=== PATIENT | female | born 2000 | race Caucasian/White ===

== ENCOUNTER 2022-09-03 08:19 | Inpatient (IN) ==
[2022-09-03] MEDS ORDERED: OXYTOCIN 30 UNITS/500 ML BAG IV PRN ×3 (08:20→19:37)
[2022-09-03] MEDS ORDERED: LIDOCAINE 1% LOCAL 20 ML VIAL INFIL PRN (08:20)
--- NOTE | 2022-09-03 08:56 | History & Physical Report ---
Date of Service September 03, 2022 Assessment & Plan (1) Elective induction of labor planned: Plan: 22 yo G1 at 39 2/7 wga presents for eIOL VSS Fetus cat 1 Labor - will start with pit GBS neg epidural prn Admission and Anticipated Discharge Date Admission Date: September 03, 2022 History of Present Illness Chief Complaint: IOL Primary Care Provider: Snow Hernandez MD, FACOG 22 yo G1 at 39 2/7 wga presents for eIOL. +FM; denies regular ctx, LOF, VB PNI: None Past [employer] hx: G1 regular cycles denies hx STIs 01/2022 neg cotest Allergies Allergy/AdvReac Type Severity Reaction Status Date / Time No Known Allergies Allergy Verified 09/02/22 16:12 Home Medications Medication Instructions Recorded Confirmed Type prenat.vits,melanie,[id number] 1 tab PO DAILY 01/21/22 09/02/22 History breast pump #1 ea 08/28/22 09/02/22 Rx ferrous sulfate 325 mg (65 mg 325 mg PO DAILY 09/03/22 09/03/22 History iron) tablet Patient History Medical History (Updated 09/03/22 @ 09:06 by Ladi Phipps MD) COVID UTI (urinary tract infection) Surgical History S/P tonsillectomy Family History (Updated 01/21/22 @ 13:22 by Brooke Kee) Father Heart disease Denies family history of Ovarian cancer Breast cancer Colorectal cancer Social History (Updated 01/21/22 @ 13:24 by Brooke Kee) Smoking Status: Never smoker Hx Alcohol Use: No Hx Substance Use: No Preferred Language: Faroese Communication Ability: Effective Counter Supervisor Required: No Beliefs That Will Affect Care: None marital status: marital status details: Jay Mauricio (34) [phone] Current Living Situation: Spouse Current Living Situation Comment: lives with spouse, no pets current occupational status: unemployed Other Information That Helps Us Care for You: No Feels Safe at Home: Yes Safety Concerns: Feels Safe At This Time Physical Exam Genitourinary: OB Exam Abdomen: + vertex and + estimated weight (7-8) Manual OB Exam: + cervical dilation (2-3), + cervical effacement 70% and + station -2 OB Exam Monitor Tracing: + external FHT monitor used, + external uterine monitor used (None) and + category I (140/mod/+accel/-decel) Results & Data ([facility]) Vital Signs (Past 12 Hours) Vital Signs Temp Pulse Resp BP 09/03/22 08:28 98.2 F 18 09/03/22 08:28 101 H 126/69 Laboratory Results OB Labs: Blood Type B Positive 01/28/22 Antibody Screen NEGATIVE 01/28/22 Hemoglobin 11.1 g/dl (12.0-16.0) L 06/11/22 Hematocrit 32.9 % (34.1-44.9) L 06/11/22 Mean Corpuscular Volume 85.5 fL (80-100) 01/28/22 Platelet Count 265 K/uL (130-400) 01/28/22 Rubella IgG Antibody Immune (Immune) 01/28/22 Rapid Plasma Reagin Nonreactive (Nonreactive) 01/28/22 Hepatitis B Surface Antigen. NON-REACTIVE (NON-REACTIVE) 01/28/22 Hepatitis C Antibody (EIA) NON-REACTIVE (NON-REACTIVE) 01/28/22 HIV (1&2) Ag and Ab Confirmation NON-REACTIVE (NON-REACTIVE) 01/28/22 Glucose 1 Hour 50 gm Load 72 mg/dl (70-130) 06/11/22 OB Optional Labs: Chlamydia trachomatis RNA NOT DETECTED (NOT DETECTED) 01/28/22 Neisseria gonorrhoeae RNA NOT DETECTED (NOT DETECTED) 01/28/22 Labs Reviewed: Declines cf/sma--mln Low risk cfdna GBS neg Diagnostic Findings ant plac Coding Level of Care Code None Diagnoses Elective induction of labor planned
[2022-09-03 08:57] LABS: Hematocrit (blood only) 33.9 % (34.1-44.9); Hemoglobin 11.8 g/dl (12.0-16.0); Mean Corpuscular Hemoglobin 30.4 pg (25.0-34.0); Mean Corpuscular Hgb Conc 34.8 g/dL (32.0-36.0); Mean Corpuscular Volume 87.4 fL (80.0-100.0); Mean Platelet Volume 12.3 fL (9.4-12.3); Platelet Count 151 K/uL (130-400); RDW Coefficient of Variation 13.4 % (11.5-14.5); RDW Standard Deviation 42.7 fL (36.4-46.3); Red Blood Count 3.88 M/uL (3.93-5.22); White Blood Count 10.02 K/ul (4.8-10.8)
[2022-09-03] MEDS ORDERED: FLUARIX QUADRIVALENT 0.5 ML SYR IM ONE (09:03)
[2022-09-03] MEDS: LACTATED RINGER'S 1,000 ML IV PRN ×3 (09:27→17:33)
--- NOTE | 2022-09-03 12:42 | Labor Progress Brief Note ---
Date of Service September 03, 2022 Subjective comfortable Assessment & Plan (1) Elective induction of labor planned: Plan: 22 yo G1 at 39 2/7 wga presents for eIOL VSS Fetus cat 1 Labor - pit at 10, now s/p arom GBS neg epidural prn Admission and Anticipated Discharge Date Admission Date: September 03, 2022 Physical Exam Genitourinary: Manual OB Exam: + cervical dilation 3 cm, + cervical effacement 70%, + station -2 and + amniotic fluid (arom clear) OB Exam Monitor Tracing: + external FHT monitor used, + external uterine monitor used (intermi q5 reg, other times irreg) and + category I (145/mod/+accel/-decel) Results & Data ([facility]) Vital Signs (Past 12 Hours) Vital Signs Temp Pulse Resp BP 09/03/22 12:00 101.5 F H 09/03/22 11:00 98.1 F 09/03/22 08:50 18 09/03/22 08:28 98.2 F 18 09/03/22 12:00 20 09/03/22 12:00 20 09/03/22 12:02 82 09/03/22 12:02 117/75 09/03/22 11:00 18 09/03/22 11:00 18 09/03/22 10:58 83 09/03/22 10:58 114/76 09/03/22 10:01 82 09/03/22 10:01 107/67 09/03/22 09:00 20 09/03/22 09:00 20 09/03/22 08:28 101 H 126/69 Coding Level of Care Code None Diagnoses Elective induction of labor planned
[2022-09-03] MEDS ORDERED: ePHEDrine sulfate 50 MG/ML AMP ONE (13:00)
[2022-09-03] MEDS ORDERED: BUPIVACAINE 0.25% 30 ML VIAL ONE (13:00)
[2022-09-03] MEDS ORDERED: SODIUM CHLORIDE 0.9% INJ 10 ML VIAL ONE (13:00)
[2022-09-03] MEDS ORDERED: LIDOCAINE 2%/EPINEPHRINE 1:200,000 20 ML SDV ONE (13:00)
[2022-09-03] MEDS ORDERED: fentaNYL citrate 100 MCG/2 ML VIAL ONE (13:00)
[2022-09-03] MEDS ORDERED: fentaNYL 2MCG/ML ROPIVACAINE 1.25MG/ML 100 ML BAG EPI ONE (13:01)
[2022-09-03] MEDS ORDERED: NALBUPHINE HCL INJ 10 MG/ML AMP IV PRN (13:42)
[2022-09-03] MEDS ORDERED: NALOXONE HCL 0.4 MG/1 ML VIAL/CARP IV PRN (13:42)
[2022-09-03] MEDS ORDERED: NALOXONE HCL 1 MG in SODIUM CHLORIDE 0.9% 1000ML 1,000 ML IV PRN (13:42)
[2022-09-03] MEDS ORDERED: ePHEDrine sulfate 50 MG/ML AMP IV PRN (13:42)
[2022-09-03] MEDS ORDERED: diphenhydrAMINE 50 MG/ML VIAL IV PRN (13:42)
[2022-09-03] MEDS ORDERED: fentaNYL 2MCG/ML ROPIVACAINE 1.25MG/ML 100 ML BAG EPI PRN (13:42)
--- NOTE | 2022-09-03 13:44 | Anesthesiology Consultation ---
Date of Service September 03, 2022 Assessment & Plan (1) Encounter for pre-operative examination: Chart Review Chart Review: Patient NOT seen in Pre Admission Testing and Acceptable Risk for Labor Epidural Consults Requested none History Height/Weight Height: 5 ft 4.96 in Weight: 78.471 kg Allergies Allergy/AdvReac Type Severity Reaction Status Date / Time No Known Allergies Allergy Verified 09/02/22 16:12 Medications Home Medications Medication Instructions Recorded Confirmed Last Taken prenat.vits,melanie,oyj-[id number]-[id number] 1 tab PO DAILY 01/21/22 09/03/22 09/03/22 breast pump #1 ea 08/28/22 09/02/22 Unknown ferrous sulfate 325 mg (65 mg 325 mg PO DAILY 09/03/22 09/03/22 09/03/22 iron) tablet Active Medications Generic Name Dose Route Start Last Admin Trade Name Freq PRN Reason Stop Dose Admin Lactated Ringer's 1,000 mls @ 125 mls/hr 09/03/22 08:20 09/03/22 13:24 Lr IV 09/05/22 08:19 999 mls/hr .Q8H PRN Administration L&D Protocol Protocol Oxytocin 30 units in 500 mls @ 8 mls/hr 09/03/22 08:20 09/03/22 11:00 Pitocin IV 09/05/22 08:19 0.48 units/hr .Q24H PRN 8 mls/hr Labor Induction/Augmentation Titration Protocol 0.48 UNITS/HR Past Medical History Medical History COVID UTI (urinary tract infection) Exercise / Class Metabolic Activity II 4-5 Yardwork/Stairs/Walk up hill Past Family History Family History Father Heart disease Denies family history of Ovarian cancer Breast cancer Colorectal cancer Past Surgical History Surgical History S/P tonsillectomy Past Anesthesia History No Hx of Anesthesia Complications and No Family Hx of Anesthesia Complications History of PONV No Hx of PONV and No Hx of Motion Sickness Social History Smoking Status: Never smoker Hx Alcohol Use: No Hx Substance Use: No substance use type: does not use Physical Exam Vital Signs Last Vital Signs Temp 36.8 C 09/03/22 12:40 Pulse 83 09/03/22 14:02 Resp 20 09/03/22 12:36 BP 122/81 09/03/22 14:02 Pulse Ox 100 09/03/22 14:00 Testing Laboratory Results 09/03/22 08:45
--- NOTE | 2022-09-03 16:45 | Labor Progress Brief Note ---
Date of Service September 03, 2022 Subjective comfortable Assessment & Plan (1) Elective induction of labor planned: Plan: 22 yo G1 at 39 2/7 wga presents for eIOL VSS Fetus cat 1 Labor - pit at 12, good progress. Will peanut ball and recheck GBS neg epidural in place Admission and Anticipated Discharge Date Admission Date: September 03, 2022 Physical Exam Genitourinary: Manual OB Exam: + cervical dilation (9.5), + cervical effacement 90% and + station 0 OB Exam Monitor Tracing: + external FHT monitor used, + external uterine monitor used (q3-4) and + category I (135/mod/+accel/-decel) Results & Data ([facility]) Vital Signs (Past 12 Hours) Vital Signs Temp Pulse Resp BP Pulse Ox 09/03/22 12:00 101.5 F H 09/03/22 11:00 98.1 F 09/03/22 08:50 18 09/03/22 08:28 98.2 F 18 09/03/22 16:42 91 H 09/03/22 16:42 110/63 09/03/22 16:40 100 09/03/22 16:40 96 H 09/03/22 16:35 99 09/03/22 16:35 96 H 09/03/22 16:30 99 09/03/22 16:30 77 09/03/22 16:25 98 09/03/22 16:25 102 H 09/03/22 16:20 98 09/03/22 16:20 81 09/03/22 16:15 97 09/03/22 16:15 78 09/03/22 16:10 97 09/03/22 16:10 78 09/03/22 16:08 78 09/03/22 16:08 100/62 09/03/22 16:05 96 09/03/22 16:05 80 09/03/22 16:00 97 09/03/22 16:00 77 09/03/22 15:55 98 09/03/22 15:55 80 09/03/22 15:54 80 09/03/22 15:54 104/66 09/03/22 15:50 98 09/03/22 15:50 81 09/03/22 15:45 98 09/03/22 15:45 77 09/03/22 15:40 97 09/03/22 15:40 88 09/03/22 15:38 88 09/03/22 15:38 107/64 09/03/22 15:35 97 09/03/22 15:35 77 09/03/22 15:30 99 09/03/22 15:30 79 09/03/22 15:25 99 09/03/22 15:25 86 09/03/22 15:24 80 09/03/22 15:24 111/81 09/03/22 15:20 99 09/03/22 15:20 83 09/03/22 15:15 99 09/03/22 15:15 95 H 09/03/22 15:10 99 09/03/22 15:10 85 09/03/22 15:08 96 H 09/03/22 15:08 103/56 L 09/03/22 15:05 100 09/03/22 15:05 92 H 09/03/22 15:00 100 09/03/22 15:00 92 H 09/03/22 14:55 100 09/03/22 14:55 98 H 09/03/22 14:50 99 09/03/22 14:50 79 09/03/22 14:47 81 09/03/22 14:47 111/67 09/03/22 14:45 100 09/03/22 14:45 90 09/03/22 14:40 98 09/03/22 14:40 82 09/03/22 14:41 94 H 09/03/22 14:41 105/65 09/03/22 14:36 82 09/03/22 14:36 101/65 09/03/22 14:35 97 09/03/22 14:35 82 09/03/22 14:31 82 09/03/22 14:31 105/63 09/03/22 14:30 98 09/03/22 14:30 83 09/03/22 14:28 83 09/03/22 14:28 113/69 09/03/22 14:25 99 09/03/22 14:25 87 09/03/22 14:21 86 09/03/22 14:21 117/75 09/03/22 14:20 99 09/03/22 14:20 84 09/03/22 14:15 98 09/03/22 14:15 84 09/03/22 14:14 88 09/03/22 14:14 115/75 09/03/22 14:12 97 H 09/03/22 14:12 108/73 09/03/22 14:10 98 09/03/22 14:10 82 09/03/22 14:10 84 09/03/22 14:10 118/74 09/03/22 14:08 78 09/03/22 14:08 117/74 09/03/22 14:06 91 H 09/03/22 14:06 119/75 09/03/22 14:05 99 09/03/22 14:05 80 09/03/22 14:05 83 09/03/22 14:05 122/76 09/03/22 14:02 83 09/03/22 14:02 122/81 09/03/22 14:00 100 09/03/22 14:00 91 H 09/03/22 14:00 81 09/03/22 14:00 125/86 09/03/22 13:58 94 H 09/03/22 13:58 121/87 09/03/22 13:57 85 09/03/22 13:57 122/85 09/03/22 13:55 99 09/03/22 13:55 87 09/03/22 13:52 100 H 09/03/22 13:52 130/87 09/03/22 13:50 100 09/03/22 13:50 96 H 09/03/22 13:45 100 09/03/22 13:45 93 H 09/03/22 13:40 99 09/03/22 13:40 92 H 09/03/22 13:35 100 09/03/22 13:35 89 09/03/22 13:30 100 09/03/22 13:30 100 H 09/03/22 13:25 99 09/03/22 13:25 89 09/03/22 13:20 99 09/03/22 13:20 85 09/03/22 13:15 98 09/03/22 13:15 96 H 09/03/22 13:10 98 09/03/22 13:10 83 09/03/22 13:05 99 09/03/22 13:05 77 09/03/22 12:40 98.2 F 09/03/22 12:36 20 09/03/22 12:36 20 09/03/22 12:00 20 09/03/22 12:00 20 09/03/22 12:02 82 09/03/22 12:02 117/75 09/03/22 11:00 18 09/03/22 11:00 18 09/03/22 10:58 83 09/03/22 10:58 114/76 09/03/22 10:01 82 09/03/22 10:01 107/67 09/03/22 09:00 20 09/03/22 09:00 20 09/03/22 08:28 101 H 126/69 Coding Level of Care Code None Diagnoses Elective induction of labor planned
[2022-09-03] MEDS ORDERED: HYDROCORTISONE ACETATE 25 MG SUPP PR PRN (19:37)
[2022-09-03] MEDS ORDERED: DIPHTHERIA/TETANUS/PERTUSSIS 0.5 ML SYR/VIAL IM ONE (19:37)
[2022-09-03] MEDS ORDERED: BENZOCAINE 20% AER SPR 82.5 GM CAN EXT PRN (19:37)
[2022-09-03] MEDS ORDERED: METHYLERGONOVINE MALEATE 0.2 MG/ML AMP IM ONE (19:37)
[2022-09-03] MEDS ORDERED: ACETAMINOPHEN 325 MG TAB PO PRN (19:37)
--- NOTE | 2022-09-03 19:39 | Delivery Summary ---
Vaginal Delivery Summary Date of Service September 03, 2022 Vaginal Delivery Summary and 2nd Degree LAC PREOPERATIVE DIAGNOSIS: 1. Single intrauterine at 39 2/7 wga 2. Elective induction of labor POSTOPERATIVE DIAGNOSIS: 1. Single intrauterine at 39 2/7 wga 2. Elective induction of labor 3. Delivered PROCEDURE: 1. Normal spontaneous vaginal delivery. SURGEON: Ladi Phipps MD ANESTHESIA: Epidural. ESTIMATED BLOOD LOSS: 400 mL FLUIDS: Continuous LR. URINE OUTPUT: None. COMPLICATIONS: None. CONDITION: Stable. INDICATIONS: 22 yo G1 at 39 2/7 wga presents for elective induction of labor. She was 2-3cm on arrival. Induction was begun with oxytocin and she then underwent AROM. She received an epidural for pain control. She continued to progress and desired to push. FINDINGS: A viable female , weight pending with Apgars of 8 and 9 at 1 and 5 minutes respectively. SPECIMEN: Cord blood, placenta OPERATIVE REPORT: The patient progressed to 10 cm, 100% effaced and +2 station, pushed over intact perineum with anesthesia to deliver a viable female infant, weight and Apgars as above. Head of delivered in KATIE position. Loose nuchal cord was present and reduced. Body and shoulders were delivered without difficulty. was delivered to maternal abdomen and nursing staff. Delayed cord clamping was performed for 60 seconds. Cord was clamped and cut. Cord blood was obtained. Placenta delivered spontaneously intact with 3-vessel cord. IV oxytocin and fundal massage were given but uterine atony was noted. Bimanual massage and extraction of clot from the CRESENCIO was performed, methergine was administered for excellent hemostasis. Vagina, cervix, perineum, and placenta were inspected. A left labial and second degree laceration were noted and repaired using 3-0 vicryl. Hemostatic bilateral periurethrals were noted and not needed to be repaired. There was excellent hemostasis. Sponge and needle counts correct x2. No sponges were left behind. Mother and stable in immediate period. [facility] Vaginal Delivery Charge Vaginal Delivery Codes: 00950 global code for the antepartum, delivery, and post- Delivery Type Details: and 2nd Degree LAC
--- NOTE | 2022-09-03 19:50 | Anesthesia Procedure Note ---
Date of Service September 03, 2022 Anesthesia Post Epidural Note Vital Signs Vital Signs: Temp Pulse Resp BP Pulse Ox 36.9 C 103 H 20 109/69 98 09/03/22 16:40 09/03/22 19:42 09/03/22 18:00 09/03/22 19:42 09/03/22 19:15 Notes Mental Status: alert / awake / arousable and participated in evaluation Nausea / Vomiting: adequately controlled Pain: adequately controlled Airway Patency, RR, SpO2: stable & adequate BP & HR: stable & adequate Hydration State: stable & adequate Neuraxial Anesthesia: was administered and sensory block is resolving Anesthetic Complications: no major complications apparent and Pt Satisfied with anesthetic care Epidural: Removed without complications and With tip intact
[2022-09-03] MEDS: DOCUSATE SODIUM 100 MG CAP PO SCH (21:58)
[2022-09-04] MEDS: IBUPROFEN 600 MG TAB PO PRN ×3 (01:20→23:15)
--- NOTE | 2022-09-04 06:04 | Obstetrical Progress Note ---
Date of Service September 04, 2022 Assessment & Plan (1) Elective induction of labor planned: (2) Supervision of normal first : Plan s/p PPD#1: Vital signs reviewed and WNL B+, GBS negative, Rubella immune Hemoglobin 11.8 (09/03), repeat CBC pending this AM Encourage ambulation Continue regular diet, treat pain as needed Discussed discharge plan with patient, plan to d/c tomorrow Admission and Anticipated Discharge Date Admission Date: September 03, 2022 Supervising Physician Co-Signing Physician Notes Resident Physician Supervision Note: I interviewed and examined the patient. Discussed with Dr. Arredondo and agree with findings and plan as documented in the note. Any exceptions or clar ifications are listed here: PP1 s/p doing well. VSS, exam benign and wnl. Continue routine pp care Documented By: Ladi Phipps MD Agustin Rodriguez is a 22 y/o female who is PPD #1 following delivery at 39 2/7 weeks. Had no complications during . Delivered vaginally and required repair of left labial tear and 2nd degree laceration. She reports feeling well overall this morning. Denies abdominal cramping, notes soreness at site of stitches but pain well managed on analgesics. Voiding without issue. Tolerating meals ov ernight and able to ambulate some. Has persistent lochia, denies significant increase in bleeding. Currently breast feeding. Review of Systems Constitutional: no fever, no chills and no sweats Respiratory: no cough, no dyspnea and no wheezing Cardiovascular: no chest pain, no palpitations and no calf pain Genitourinary: no dysuria Neurologic: no headache(s) Physical Exam Constitutional: WD/WN, vitals as above no acute distress Respiratory: no respiratory distress Auscultation: lungs clear to auscultation bilaterally; no rales, no rhonchi and no wheezes Cardiovascular: RRR, no murmur, no edema Extremities: no calf tenderness and no edema Negative Geo's sign bilaterally. Genitourinary: Uterine fundus firm, palpable below the umbilicus. Results & Data ([facility]) Vital Signs (Past 12 Hours) Vital Signs Temp Pulse Pulse Resp BP BP Pulse Ox 09/04/22 02:30 36.7 C 62 16 96/58 L 09/03/22 22:00 36.7 C 68 18 99/56 L 09/03/22 21:30 18 09/03/22 21:00 18 09/03/22 19:45 18 09/03/22 20:30 18 09/03/22 20:15 83 18 111/61 09/03/22 20:00 18 09/03/22 19:30 37.0 C 18 09/03/22 21:31 83 09/03/22 21:31 107/64 09/03/22 21:02 94 H 09/03/22 21:02 115/71 09/03/22 20:36 88 09/03/22 20:36 112/71 09/03/22 20:12 83 09/03/22 20:12 111/61 09/03/22 19:30 18 09/03/22 19:30 37.0 C 18 09/03/22 20:02 89 09/03/22 20:02 112/65 09/03/22 19:42 103 H 09/03/22 19:42 109/69 09/03/22 19:27 96 H 09/03/22 19:27 105/71 09/03/22 19:22 100 H 09/03/22 19:22 109/68 09/03/22 19:15 98 09/03/22 19:15 131 H 09/03/22 19:10 98 09/03/22 19:10 123 H 09/03/22 19:07 129 H 09/03/22 19:07 106/62 09/03/22 19:05 99 09/03/22 19:05 119 H 09/03/22 19:00 98 09/03/22 19:00 124 H 09/03/22 18:55 99 09/03/22 18:55 97 H 09/03/22 18:50 98 09/03/22 18:50 112 H 09/03/22 18:45 98 09/03/22 18:45 111 H 09/03/22 18:40 98 09/03/22 18:40 110 H 09/03/22 18:38 107 H 09/03/22 18:38 121/67 09/03/22 18:35 98 09/03/22 18:35 119 H 09/03/22 18:30 99 09/03/22 18:30 154 H 09/03/22 18:26 111 H 09/03/22 18:26 133/67 09/03/22 18:25 99 09/03/22 18:25 161 H 09/03/22 18:20 99 09/03/22 18:20 92 H 09/03/22 18:15 100 09/03/22 18:15 138 H 09/03/22 18:14 98 H 09/03/22 18:14 131/61 09/03/22 18:10 100 09/03/22 18:10 120 H 09/03/22 18:05 99 09/03/22 18:05 107 H O2 Del Method 09/04/22 02:30 09/03/22 22:00 Room Air 09/03/22 21:30 09/03/22 21:00 09/03/22 19:45 09/03/22 20:30 09/03/22 20:15 09/03/22 20:00 09/03/22 19:30 09/03/22 21:31 09/03/22 21:31 09/03/22 21:02 09/03/22 21:02 09/03/22 20:36 09/03/22 20:36 09/03/22 20:12 09/03/22 20:12 09/03/22 19:30 09/03/22 19:30 09/03/22 20:02 09/03/22 20:02 09/03/22 19:42 09/03/22 19:42 09/03/22 19:27 09/03/22 19:27 09/03/22 19:22 09/03/22 19:22 09/03/22 19:15 09/03/22 19:15 09/03/22 19:10 09/03/22 19:10 09/03/22 19:07 09/03/22 19:07 09/03/22 19:05 09/03/22 19:05 09/03/22 19:00 09/03/22 19:00 09/03/22 18:55 09/03/22 18:55 09/03/22 18:50 09/03/22 18:50 09/03/22 18:45 09/03/22 18:45 09/03/22 18:40 09/03/22 18:40 09/03/22 18:38 09/03/22 18:38 09/03/22 18:35 09/03/22 18:35 09/03/22 18:30 09/03/22 18:30 09/03/22 18:26 09/03/22 18:26 09/03/22 18:25 09/03/22 18:25 09/03/22 18:20 09/03/22 18:20 09/03/22 18:15 09/03/22 18:15 09/03/22 18:14 09/03/22 18:14 09/03/22 18:10 09/03/22 18:10 09/03/22 18:05 09/03/22 18:05 Resident Activity Tracking Resident Involvement: Resident Care Provided Care Provided: OB Delivery
[2022-09-04] MEDS: DOCUSATE SODIUM 100 MG CAP PO SCH ×2 (08:19→20:31)
[2022-09-04] MEDS: PRENATAL VITAMIN 1 TAB PO SCH (08:19)
[2022-09-04] MEDS: FERROUS SULFATE 325 MG TAB PO SCH (08:19)
[2022-09-04 08:35] LABS: Hematocrit (blood only) 32.3 % (34.1-44.9); Hemoglobin 11.3 g/dl (12.0-16.0); Mean Corpuscular Volume 88.7 fL (80.0-100.0); Mean Platelet Volume 12.5 fL (9.4-12.3); Platelet Count 189 K/uL (130-400); RDW Coefficient of Variation 13.5 % (11.5-14.5); RDW Standard Deviation 44.3 fL (36.4-46.3); Red Blood Count 3.64 M/uL (3.93-5.22)
[2022-09-04] MEDS ORDERED: bisacodyL 5 MG TABEC PO SCH (20:00)
--- NOTE | 2022-09-05 06:14 | Obstetrical Progress Note ---
Date of Service September 05, 2022 Assessment & Plan (1) Elective induction of labor planned: (2) Supervision of normal first : Plan s/p PPD#2: Vital signs reviewed and WNL B+, GBS negative, Rubella immune Hemoglobin 11.8 (09/03), 11.3 (09/04) Encourage ambulation Continue regular diet, treat pain as needed Discussed discharge plan with patient, plan to d/c today pending repeat CBC (elevated WBC yesterday) Admission and Anticipated Discharge Date Admission Date: September 03, 2022 Supervising Physician Co-Signing Physician Notes Resident Physician Supervision Note: I was present with Dr. Arredondo during the history and exam. I discussed the case with the resident and agree with the findings and plan as documented in the note. Any exceptions or clarifications are listed here: PPD#2 doing well. WBC dropped from yesterday. Reviewed DC instructions, followup 6w PP. Documented By: Niki Damon, DO Velez Jennifer is a 22 y/o female who is PPD #2 following delivery at 39 2/7 weeks. Had no complications during . Delivered vaginally and required repair of left labial tear and 2nd degree laceration. She reports feeling well overall this morning. Notes soreness at site of stitches but pain well managed on analgesics. Some burning with urination. Tolerating meals overnight and able to ambulate some. Has persistent lochia with some improvement this morning. Currently breast feeding. Does note some diffuse pain in her arms/legs, states it feels "deep" in her bones, which started yesterday evening. Denies chills or sweats. Review of Systems Constitutional: no fever, no chills and no sweats Respiratory: no cough, no dyspnea and no wheezing Cardiovascular: no chest pain, no palpitations and no calf pain Genitourinary: no dysuria Neurologic: no headache(s) Physical Exam Constitutional: WD/WN, vitals as above no acute distress Respiratory: no respiratory distress Auscultation: lungs clear to auscultation bilaterally; no rales, no rhonchi and no wheezes Cardiovascular: RRR, no murmur, no edema Extremities: no calf tenderness and no edema Negative Geo's sign bilaterally. Gastrointestinal (Abdomen): Inspection/Auscultation: normal bowel sounds Genitourinary: Uterine fundus firm, palpable below the umbilicus. Results & Data ([facility]) Vital Signs (Past 12 Hours) Vital Signs Temp Pulse Resp BP O2 Del Method 09/04/22 23:15 36.6 C 99 H 18 116/70 09/04/22 18:46 37.0 C 94 H 109/71 Room Air Resident Activity Tracking Resident Involvement: Resident Care Provided Care Provided: OB Delivery
[2022-09-05 07:30] LABS: Hematocrit (blood only) 30.4 % (34.1-44.9); Hemoglobin 10.3 g/dl (12.0-16.0); Mean Corpuscular Hgb Conc 33.9 g/dL (32.0-36.0); Mean Corpuscular Volume 88.6 fL (80.0-100.0); Mean Platelet Volume 11.9 fL (9.4-12.3); Platelet Count 163 K/uL (130-400); RDW Coefficient of Variation 13.6 % (11.5-14.5); RDW Standard Deviation 44.2 fL (36.4-46.3); Red Blood Count 3.43 M/uL (3.93-5.22)
[2022-09-05] MEDS: PRENATAL VITAMIN 1 TAB PO SCH (08:10)
[2022-09-05] MEDS: DOCUSATE SODIUM 100 MG CAP PO SCH (08:10)
[2022-09-05] MEDS: FERROUS SULFATE 325 MG TAB PO SCH (08:10)
[2022-09-05] MEDS ORDERED: bisacodyL 10 MG SUPP PR PRN (19:37)
== END 2022-09-05 15:55 | disposition home or self-care (01) | DRG 807 ==
LOC: 4S1 08:19 → 4E2 21:45